=== PATIENT | male | born 1990 | race Caucasian/White ===

== ENCOUNTER 2023-10-06 09:10 | Emergency (ER) | payer MEDICAID ==
[~2023-10-06] VITALS: Ht 185.4 cm; Wt 80.0 kg
[2023-10-06 09:16] VITALS: BP 159/82; PULSE 88; RESP 15; TEMP 98; O2SAT 99
[2023-10-06] MEDS ORDERED: NAPR-56 PO (09:55)
[2023-10-06] MEDS ORDERED: DOXY-1 PO (09:55)
[2023-10-06] MEDS: ketorolac tromethamine 15mg/ml inj. IM ONE (10:32)
== END 2023-10-06 10:30 | disposition home or self-care (01) ==
LOC: ER 09:11
DX: K04.7 Periapical abscess without sinus (principal)
CPT/HCPCS: 99283